=== PATIENT | male | born 1980 | race Caucasian/White ===

== ENCOUNTER 2019-01-06 10:27 | Outpatient (CLI) | payer BC ==
--- NOTE | 2019-01-06 10:58 | RAD ---
XR Knee Rt 4 View STANDARD: 01/06/2019 12:00 AM CLINICAL INDICATION: Pain COMPARISON: None. FINDINGS: Fracture:No fracture. Arthropathy:None of significance. Incidental findings:None of significance. IMPRESSION: 1. No acute osseous abnormality.
== END 2019-01-06 10:28 | disposition home or self-care (01) ==
LOC: BICRAD 10:27
PROVIDERS: ATTEND Internal Medicine
DX: M25.561 Pain in right knee (principal)

== ENCOUNTER 2023-04-09 22:21 | Emergency (ER) | payer BC ==
[2023-04-10] MEDS ORDERED: Amoxicillin/Potassium Clav 875 MG TAB ONE (00:10)
[2023-04-10] MEDS ORDERED: Rabies Vaccine Human 2.5 UNITS VIAL ONE (01:28)
[2023-04-10] MEDS ORDERED: Boostrix 0.5 ML (Tdap) VIAL (>/=7 yrs of age) ONE (01:38)
== END 2023-04-10 02:53 | disposition home or self-care (01) ==
LOC: ERS 22:21
DX: S21.252A Open bite of left back wall of thorax without penetration into thoracic cavity, initial encounter (principal); S41.152A Open bite of left upper arm, initial encounter; W55.01XA Bitten by cat, initial encounter; Z23 Encounter for immunization
CPT/HCPCS: 90376; 90471; 90675; 90715